=== PATIENT | female | born 1985 | race Caucasian/White ===

== ENCOUNTER 2020-12-13 15:46 | Emergency (ER) | payer SELFPAY ==
[2020-12-13 15:48] VITALS: BP 114/72
== END 2020-12-13 16:56 | disposition home or self-care (01) ==
LOC: ED 15:46
DX: J02.9 Acute pharyngitis, unspecified (principal); Z20.828 Contact with and (suspected) exposure to other viral communicable diseases
CPT/HCPCS: U0003